=== PATIENT | male | born 1935 | race Caucasian/White ===

== ENCOUNTER 2016-11-15 12:39 | Emergency (ER) | payer SELFPAY ==
[2016-11-15] MEDS ORDERED: CODE BLUE RESPONSE XX ONE (12:53)
[2016-11-15] MEDS ORDERED: EPINEPHRINE SYRINGE 0.1 MG/ML, 10ML ONE ×2 (12:53)
[2016-11-15] MEDS ORDERED: ESMOLOL 100 MG/10 ML ONE (12:53)
[2016-11-15] MEDS ORDERED: MAGNESIUM SULFATE 1 GM/2 ML ONE (12:53)
== END 2016-11-15 14:48 | disposition expired ==
LOC: EDBD 12:39 → ED 13:40
DX: I46.2 Cardiac arrest due to underlying cardiac condition (principal); I49.01 Ventricular fibrillation
CPT/HCPCS: 92950; 99285; J3475